=== PATIENT | male | born 1980 | race Caucasian/White ===

== ENCOUNTER 2023-10-29 20:37 | Inpatient (IN) | payer OTHER ==
[2023-10-29] MEDS ORDERED: Acetaminophen 325 MG TAB PO PRN (21:02)
[2023-10-29] MEDS ORDERED: Senokot S 8.6-50 MG TAB PO PRN (21:02)
[2023-10-29] MEDS ORDERED: Ondansetron PF 4 MG/2 ML Vial IVP PRN (21:02)
[2023-10-29] MEDS ORDERED: Calcium Carbonate 500 MG ChewTAB PO PRN (21:02)
[2023-10-29] MEDS ORDERED: Guaifenesin DM 100-10/5 ML UDCUP PO PRN (21:02)
[2023-10-29 21:48] VITALS: BMI 27.5
[2023-10-29] MEDS: Nicotine 14 MG PATCH TD SCH (22:35)
[2023-10-29] MEDS: Rabies Immune Globulin/PF 300 UNITS/ML VIAL IM SCH (22:44)
[2023-10-29] MEDS: Rabies Vaccine Human 2.5 UNITS VIAL IM ONE (23:08)
[2023-10-29] MEDS: Thiamine HCl 200 MG/2 ML VIAL SLOW IVP SCH (23:26)
[2023-10-29] MEDS: VANCOMYCIN 1.75 GM/350 ML BAG 1.75 GM in Premix 1 BAG IVPB SCH (23:41)
[2023-10-29] MEDS: Lactated Ringer's 1,000 ML IV SCH (23:42)
[2023-10-30] MEDS: Ampicillin/Sulbactam 3 GM in Sodium Chloride 0.9% 100 ML IVPB SCH ×3 (03:50→12:25)
[2023-10-30 04:49] LABS: #Basophils 0.07 10x3/uL (0.0-0.2); #Eosinphils 0.32 10x3/uL (0.0-0.5); #Monocytes 0.69 10x3/uL (0.0-1.1); #Neutrophils 2.89 10x3/uL (1.5-8.4); %Basophils 1.2 % (0.0-2.0); %Eosinophils 5.7 % (0.0-6.0); %Lymphocytes 29.1 % (18.0-47.0); %Monocytes 12.3 % (0.0-10.0); %Neutrophils 51.3 % (40.0-75.0); Hematocrit 39.6 % (38.8-50.0); Hemoglobin 14.3 g/dL (13.5-17.5); Mean Corpuscular HGB CONC 36.1 g/dL (32.0-36.0); Mean Corpuscular Hemoglobin 33.4 pg (27.0-33.0); Mean Corpuscular Volume 92.5 fL (81.2-95.1); Mean Platelet Volume 9.5 fL (7.4-10.4); Platelet Count 216 10x3/uL (150-450); RBC Distribution Width 12.4 % (11.5-14.5); Red Blood Cell (RBC) Count 4.28 10x6/uL (4.32-5.72); White Blood Cell (WBC) Count 5.6 10x3/uL (3.5-10.5)
[2023-10-30 04:53] LABS: INR-International Normal Ratio 1.1; PTT 29.7 sec (22.0-33.0); Prothrombin Time 11.5 sec (9.5-12.1)
[2023-10-30 04:55] LABS: Lactic Acid 0.5 mmol/L (0.5-2.2)
[2023-10-30 04:59] LABS: ALT (SGPT) 98 U/L (8-55); AST (SGOT) 77 U/L (5-34); Albumin 3.4 g/dL (3.5-5.0); Alkaline Phosphatase 80 U/L (40-110); Anion Gap 13 mmol/L (10-20); BUN (Urea Nitrogen) 25 mg/dL (8.9-20.6); Bilirubin, Total 0.8 mg/dL (0.2-1.2); CK (CPK) 183 U/L (30-200); Calc. Creatinine Clearance 152 mL/min (70-130); Calcium 9.2 mg/dL (7.8-10.44); Carbon Dioxide 25 mmol/L (22-29); Chloride 106 mmol/L (98-107); Estimated GFR 112; Globulin 3.6 g/dL (2.4-3.5); Glucose 97 mg/dL (70-105); Magnesium 2.1 mg/dL (1.6-2.6); Potassium 3.8 mmol/L (3.5-5.1); Sodium 140 mmol/L (136-145)
[2023-10-30 05:19] LABS: HIV (1/2) Antibody/Antigen Non-Reactive (NonReactive); HIV 1/2 INDEX 0.18 S/CO (<1.00)
[2023-10-30] MEDS: Enoxaparin 40 MG (0.4 mL) SYRINGE SC SCH (10:03)
[2023-10-30] MEDS: Thiamine 100 MG TAB PO SCH (10:03)
[2023-10-30] MEDS: Folic Acid 1 MG TAB PO SCH (10:03)
[2023-10-30] MEDS: traMADol HCl 50 MG TAB PO PRN (10:05)
[2023-10-30] MEDS: Vancomycin 1.5 GRAM/300 ML BAG 1.5 GM in Premix 1 BAG IVPB SCH (10:08)
[2023-10-30 10:22] VITALS: BMI 27.5
[2023-10-30] MEDS ORDERED: VANCOMYCIN 1.25 GM/250 ML BAG 1.25 GM in Premix 1 BAG IVPB SCH (11:00)
[2023-10-30] MEDS: Morphine 2 MG/ML VIAL SLOW IVP PRN (12:23)
[2023-10-30] MEDS: Ketorolac Tromethamine 30 MG (1 mL) VIAL IVP PRN (16:12)
[2023-10-31 05:21] LABS: Vancomycin, Random 15.9 ug/mL (See Comment)
[2023-10-31 12:25] VITALS: BP 127/78; TEMP 98.3
[2023-11-01] MEDS ORDERED: Rabies Vaccine Human 2.5 UNITS VIAL IM ONE (21:00)
[2023-11-05] MEDS ORDERED: Rabies Vaccine Human 2.5 UNITS VIAL IM ONE (21:00)
[2023-11-12] MEDS ORDERED: Rabies Vaccine Human 2.5 UNITS VIAL IM ONE (21:00)
== END 2023-10-31 14:11 | disposition home or self-care (01) | DRG 603 ==
LOC: CSHTELE 20:37 → OBSVTOIN 21:02
PROVIDERS: ADMIT Internal Medicine; ATTEND Internal Medicine
DX: L03.115 Cellulitis of right lower limb (principal); N17.9 Acute kidney failure, unspecified; S81.831A Puncture wound without foreign body, right lower leg, initial encounter; W54.0XXA Bitten by dog, initial encounter; F15.10 Other stimulant abuse, uncomplicated; F17.210 Nicotine dependence, cigarettes, uncomplicated; Y93.89 Activity, other specified; Y92.89 Other specified places as the place of occurrence of the external cause; Z79.891 Long term (current) use of opiate analgesic
CPT/HCPCS: 36415; 80053; 80202; 82550; 83605; 83735; 85025; 85610; 85730; 86140; 87389; 90375; 90675; 97139; J0295; J1650; J1885; J2272; J3370; J3411; J7120